=== PATIENT | male | born 1980 | race Caucasian/White ===

== ENCOUNTER 2017-07-26 08:36 | Emergency (ER) | payer SELFPAY ==
[~2017-07-26] VITALS: Ht 175.2 cm; Wt 93.0 kg
[~2017-07-26 08:36] MED LIST: AMOXIL500 MG PO; ANAPROX DS550 MG PO; CIPRO500 MG PO; CIPROFLOXACIN500 MG PO; CYCLOBENZAPRINE10 MG PO; FLAGYL500 MG PO; FLEXERIL5 MG PO; LOMOTIL 0.025 M1 TAB PO; MEDROL DOSEPAK4 MG PO; MOTRIN800 MG PO; MULTIVITAMIN1 CTB PO; Motrin,Rufen800 MG PO; PHENERGAN W/DM120 ML PO; PREDNISONE10 MG PO; PROAIR HFA0.09 MG/AC INH; ROBITUSSIN AC 110 ML PO; ROBITUSSIN-DM 110 ML PO; VIBRAMYCIN100 MG PO; VITAMIN C W/ROSE HIP; VITAMIN C500 M4 PO; ZITHROMAX Z PA250 MG PO; ZITHROMAX250 MG PO; ZYRTEC10 MG PO
[2017-07-26] MEDS ORDERED: NAPROSYN500 MG PO (12:02)
[2017-07-26] MEDS ORDERED: CYCLOBENZAPRINE5 M3 PO (12:02)
== END 2017-07-26 12:10 | disposition home or self-care (01) ==
LOC: ED 08:36
DX: G89.29 Other chronic pain (principal); M54.5 Low back pain; F17.200 Nicotine dependence, unspecified, uncomplicated; Z79.899 Other long term (current) drug therapy

== ENCOUNTER 2020-09-17 20:04 | Emergency (ER) | payer SELFPAY ==
[~2020-09-17] VITALS: Ht 175.2 cm; Wt 102.1 kg
[~2020-09-17 20:04] MED LIST changes: +CLINDAMYCIN150 MG PO; +CYCLOBENZAPRINE5 M3 PO; +NAPROSYN500 MG PO
[2020-09-17] MEDS ORDERED: AMOXICILLIN500 M2 PO (20:31)
== END 2020-09-17 23:38 | disposition home or self-care (01) ==
LOC: ED 20:04
DX: K04.7 Periapical abscess without sinus (principal); K08.89 Other specified disorders of teeth and supporting structures; F32.9 Major depressive disorder, single episode, unspecified; Z20.822 Contact with and (suspected) exposure to COVID-19; Z79.899 Other long term (current) drug therapy

== ENCOUNTER 2024-03-08 11:37 | Inpatient (IN) | payer SELFPAY ==
[~2024-03-08] VITALS: Ht 175.2 cm; Wt 119.0 kg
[~2024-03-08 11:37] MED LIST changes: +AMOXICILLIN500 M2 PO
[2024-03-08 12:05] VITALS: BP 116/77
[2024-03-08 12:15] LABS: BASO % 0.7 % (0.0-1.0); EOS # 0.2 10*3/uL (0.0-0.4); EOS % 3.5 % (1.0-4.0); MEAN CELL VOLUME 90.9 fl (80.0-94.0); MEAN CORPUSCULAR HGB 32.3 pg (27.0-31.0); MEAN CORPUSCULAR HGB CONC 35.5 g/dl (33.0-37.0); MEAN PLATELET VOLUME 9.8 fl (9.6-12.3); MONO # 0.5 10*3/uL (0.1-1.0); NEUT # 2.8 10*3/uL (2.3-7.9); NEUT % 50.1 % (47.0-73.0); PLATELET COUNT AUTOMATED 213 10*3/uL (130-400); RED BLOOD COUNT 4.18 10*6/uL (4.50-5.90); RED CELL DISTRI WIDTH 12.1 % (0-14.5); WHITE BLOOD COUNT 5.6 10*3/uL (4.8-10.8)
[2024-03-08 12:40] LABS: ACT PARTIAL THROMBO TIME 23.3 SECONDS (20.0-32.1)
[2024-03-08 12:41] LABS: ALKALINE PHOSPHATASE 86 U/L (46-116); BUN 13 mg/dl (9-23); CHLORIDE 106 mmol/L (98-107); POTASSIUM 3.4 mmol/L (3.4-5.1); SGPT/ALT 36 U/L (5-49)
[2024-03-08] MEDS ORDERED: ASPIRIN, CHEWABLE 81 MG TAB PO ONE (14:05)
[2024-03-08] MEDS ORDERED: SODIUM CHLORIDE 0.9% 100 ML IV ONE (14:46)
[2024-03-08] MEDS ORDERED: IOHEXOL 350 MG/ML 100 ML VIAL IV ONE (14:46)
[2024-03-08 15:05] VITALS: BP 122/72
[2024-03-08] MEDS ORDERED: BISACODYL 5 MG TAB PO PRN (16:15)
[2024-03-08] MEDS ORDERED: Acetaminophen/Hydrocodone 5 MG/325 MG TABLET PO PRN (16:15)
[2024-03-08] MEDS ORDERED: ACETAMINOPHEN 325 MG TAB PO PRN (16:15)
[2024-03-08] MEDS ORDERED: BISACODYL 10 MG SUPP R PRN (16:15)
[2024-03-08] MEDS ORDERED: Magnesium Hydroxide 30 ML UDC PO PRN (16:15)
[2024-03-08] MEDS ORDERED: Ondansetron Hydrochloride 4 MG/2 ML VIAL IV PRN (16:15)
[2024-03-08] MEDS ORDERED: ACETAMINOPHEN 650 MG SUPP R PRN (16:15)
[2024-03-08] MEDS ORDERED: Clopidogrel Hydrogen Sulfate 75 MG TAB PO ONE (16:25)
[2024-03-08] MEDS ORDERED: SODIUM CHLORIDE 0.9% 1,000 ML IV SCH (16:30)
[2024-03-08 17:48] VITALS: BP 118/68
[2024-03-09 06:42] LABS: BASO # 0.1 10*3/uL (0.0-0.1); BASO % 0.9 % (0.0-1.0); EOS # 0.2 10*3/uL (0.0-0.4); EOS % 2.5 % (1.0-4.0); HEMATOCRIT 41.8 % (42.0-52.0); LYMPH # 2.7 10*3/uL (1.3-4.4); MEAN CORPUSCULAR HGB 31.7 pg (27.0-31.0); MEAN CORPUSCULAR HGB CONC 33.3 g/dl (33.0-37.0); MEAN PLATELET VOLUME 10.3 fl (9.6-12.3); MONO # 0.9 10*3/uL (0.1-1.0); MONO % 11.3 % (3.0-9.0); NEUT # 4.1 10*3/uL (2.3-7.9); NEUT % 50.8 % (47.0-73.0); PLATELET COUNT AUTOMATED 250 10*3/uL (130-400); RED BLOOD COUNT 4.38 10*6/uL (4.50-5.90); RED CELL DISTRI WIDTH 12.4 % (0-14.5)
[2024-03-09 06:59] LABS: MEAN CELL VOLUME 95.4 fl (80.0-94.0)
[2024-03-09 07:01] LABS: ACT PARTIAL THROMBO TIME 25.1 SECONDS (20.0-32.1)
[2024-03-09 07:31] LABS: ALKALINE PHOSPHATASE 92 U/L (46-116); BUN 12 mg/dl (9-23); CHLORIDE 106 mmol/L (98-107); CHOLESTEROL 208 mg/dL (<200); LDL CHOLESTEROL 136 mg/dL (9-159); POTASSIUM 3.8 mmol/L (3.4-5.1); SGPT/ALT 38 U/L (5-49); TOTAL PROTEIN 7.3 gm/dL (6.0-8.0); TRIGLYCERIDES 151 mg/dl (<150)
[2024-03-09] MEDS ORDERED: SODIUM CHLORIDE 0.9% 100 ML BAG IV ONE (09:10)
[2024-03-09] MEDS ORDERED: IOHEXOL 350 MG/ML 100 ML VIAL IV ONE (09:10)
[2024-03-09 09:27] LABS: VITAMIN D, 25-HYDROXY 31.7 ng/mL (30-100)
[2024-03-09] MEDS ORDERED: Enoxaparin Sodium 40 MG/0.4 ML SYR SC SCH (10:00)
[2024-03-09] MEDS ORDERED: ASPIRIN, CHEWABLE 81 MG TAB PO SCH (10:00)
[2024-03-09] MEDS ORDERED: ATORVASTATIN CALCIUM 80 MG TAB PO SCH (10:00)
[2024-03-09] MEDS ORDERED: Clopidogrel Hydrogen Sulfate 75 MG TAB PO SCH (10:00)
[2024-03-09 10:27] VITALS: BP 120/78
[2024-03-09 13:30] VITALS: BP 130/68
[2024-03-09] MEDS ORDERED: CLARITIN10 MG PO (13:30)
[2024-03-09] MEDS ORDERED: ATORVASTATIN CA40 M1 PO (15:31)
[2024-03-09] MEDS ORDERED: ASPIRIN CHILDRE81 MG PO (15:31)
[2024-03-09] MEDS ORDERED: PERFLUTREN PROTEIN-A MICROSPHR 3 ML VIAL IV ONE (15:51)
== END 2024-03-09 16:22 | disposition home or self-care (01) | DRG 313 ==
LOC: ED 11:37 → EDHOLD 16:12
PROVIDERS: Internal Medicine; Student in an Organized Health Care Education/Training Program; ADMIT Internal Medicine; ATTEND Internal Medicine
DX: R07.89 Other chest pain (principal); Z68.45 Body mass index [BMI] 70 or greater, adult; D64.9 Anemia, unspecified; G89.29 Other chronic pain; M54.9 Dorsalgia, unspecified; R73.9 Hyperglycemia, unspecified; E66.01 Morbid (severe) obesity due to excess calories; E78.2 Mixed hyperlipidemia; Z79.899 Other long term (current) drug therapy; Z79.01 Long term (current) use of anticoagulants; Z82.49 Family history of ischemic heart disease and other diseases of the circulatory system; Z83.3 Family history of diabetes mellitus; Z79.2 Long term (current) use of antibiotics; Z86.16 Personal history of COVID-19

== ENCOUNTER 2024-03-14 14:34 | Emergency (ER) | payer SELFPAY ==
[~2024-03-14] VITALS: Ht 177.8 cm; Wt 118.8 kg
[~2024-03-14 14:34] MED LIST changes: +ASPIRIN CHILDRE81 MG PO; +ATORVASTATIN CA40 M1 PO; +CLARITIN10 MG PO
[2024-03-14] MEDS ORDERED: LORazepam 1 MG TAB PO ONE (14:50)
[2024-03-14 15:13] LABS: BASO % 0.4 % (0.0-1.0); EOS # 0.1 10*3/uL (0.0-0.4); EOS % 1.8 % (1.0-4.0); HEMATOCRIT 37.9 % (42.0-52.0); LYMPH # 1.8 10*3/uL (1.3-4.4); LYMPH % 24.6 % (27.0-41.0); MEAN CELL VOLUME 93.3 fl (80.0-94.0); MEAN CORPUSCULAR HGB 31.5 pg (27.0-31.0); MEAN CORPUSCULAR HGB CONC 33.8 g/dl (33.0-37.0); MONO # 0.8 10*3/uL (0.1-1.0); MONO % 11.1 % (3.0-9.0); NEUT # 4.6 10*3/uL (2.3-7.9); NEUT % 61.6 % (47.0-73.0); PLATELET COUNT AUTOMATED 242 10*3/uL (130-400); RED BLOOD COUNT 4.06 10*6/uL (4.50-5.90); RED CELL DISTRI WIDTH 11.9 % (0-14.5); WHITE BLOOD COUNT 7.4 10*3/uL (4.8-10.8)
[2024-03-14 15:31] LABS: BUN 17 mg/dl (9-23); CHLORIDE 104 mmol/L (98-107); POTASSIUM 3.9 mmol/L (3.4-5.1)
== END 2024-03-14 16:15 | disposition home or self-care (01) ==
LOC: ED 14:34
PROVIDERS: Nurse Practitioner Family
DX: R51.9 Headache, unspecified (principal); F41.9 Anxiety disorder, unspecified; Z79.82 Long term (current) use of aspirin; Z79.899 Other long term (current) drug therapy; Z87.891 Personal history of nicotine dependence

== ENCOUNTER 2024-09-22 20:10 | Emergency (ER) | payer BC ==
[~2024-09-22] VITALS: Ht 172.7 cm; Wt 111.1 kg
[2024-09-22 20:36] LABS: BASO # 0.1 10*3/uL (0.0-0.1); BASO % 0.7 % (0.0-1.0); EOS # 0.4 10*3/uL (0.0-0.4); EOS % 4.8 % (1.0-4.0); HEMATOCRIT 39.5 % (42.0-52.0); MEAN CELL VOLUME 94.3 fl (80.0-94.0); MEAN CORPUSCULAR HGB 31.7 pg (27.0-31.0); MEAN CORPUSCULAR HGB CONC 33.7 g/dl (33.0-37.0); MEAN PLATELET VOLUME 9.9 fl (9.6-12.3); MONO % 12.8 % (3.0-9.0); NEUT % 39.6 % (47.0-73.0); PLATELET COUNT AUTOMATED 224 10*3/uL (130-400); RED BLOOD COUNT 4.19 10*6/uL (4.50-5.90); RED CELL DISTRI WIDTH 12.3 % (0-14.5); WHITE BLOOD COUNT 7.5 10*3/uL (4.8-10.8)
[2024-09-22 21:01] LABS: ALKALINE PHOSPHATASE 109 U/L (46-116); BUN 13 mg/dl (9-23); CHLORIDE 105 mmol/L (98-107); POTASSIUM 3.4 mmol/L (3.4-5.1); SGPT/ALT 25 U/L (5-49); TOTAL PROTEIN 7.4 gm/dL (6.0-8.0)
[2024-09-22] MEDS ORDERED: LORazepam 1 MG TAB PO ONE (21:45)
== END 2024-09-22 23:26 | disposition home or self-care (01) ==
LOC: ED 20:10
PROVIDERS: Internal Medicine
DX: R07.89 Other chest pain (principal); D53.9 Nutritional anemia, unspecified; F32.A Depression, unspecified; F17.200 Nicotine dependence, unspecified, uncomplicated; Z79.899 Other long term (current) drug therapy

== ENCOUNTER 2025-01-19 20:04 | Observation (INO) | payer BC ==
[~2025-01-19] VITALS: Ht 172.7 cm; Wt 99.8 kg
[2025-01-19 20:30] LABS: BASO # 0.0 10*3/uL (0.0-0.1); BASO % 0.4 % (0.0-1.0); EOS # 0.3 10*3/uL (0.0-0.4); EOS % 2.6 % (1.0-4.0); MEAN CELL VOLUME 92.6 fl (80.0-94.0); MEAN CORPUSCULAR HGB 31.3 pg (27.0-31.0); MEAN PLATELET VOLUME 9.6 fl (9.6-12.3); MONO # 0.9 10*3/uL (0.1-1.0); MONO % 9.3 % (3.0-9.0); NEUT # 5.0 10*3/uL (2.3-7.9); NEUT % 53.1 % (47.0-73.0); NUCLEATED RED BLOOD CELL 0.0 % (0.0-0.0); NUCLEATED RED BLOOD CELL 0.0 10*3/uL (0.0-0.0); PLATELET COUNT AUTOMATED 243 10*3/uL (130-400); RED CELL DISTRI WIDTH 12.1 % (0-14.5)
[2025-01-19 20:38] VITALS: BP 123/76
[2025-01-19 20:44] LABS: ACT PARTIAL THROMBO TIME 24.0 SECONDS (20.0-32.1)
[2025-01-19 20:53] LABS: BUN 14 mg/dl (9-23); SGPT/ALT 33 U/L (5-49)
[2025-01-19] MEDS ORDERED: LISINOPRIL5 MG PO (23:32)
[2025-01-19] MEDS ORDERED: POTASSIUM CHLORIDE 20 MEQ TAB PO ONE (23:40)
[2025-01-19] MEDS ORDERED: ASPIRIN, CHEWABLE 81 MG TAB PO ONE (23:40)
[2025-01-20 00:07] VITALS: BP 111/65
[2025-01-20] MEDS ORDERED: ACETAMINOPHEN 650 MG SUPP R PRN (00:50)
[2025-01-20] MEDS ORDERED: BISACODYL 10 MG SUPP R PRN (00:50)
[2025-01-20] MEDS ORDERED: ACETAMINOPHEN 325 MG TAB PO PRN (00:50)
[2025-01-20] MEDS ORDERED: Acetaminophen/Hydrocodone 5 MG/325 MG TABLET PO PRN (00:50)
[2025-01-20] MEDS ORDERED: BISACODYL 5 MG TAB PO PRN (00:50)
[2025-01-20] MEDS ORDERED: IOHEXOL 350 MG/ML 100 ML VIAL IV ONE (01:15)
[2025-01-20] MEDS ORDERED: SODIUM CHLORIDE 0.9% 100 ML BAG IV ONE (01:15)
[2025-01-20 03:25] VITALS: BP 110/65
[2025-01-20 06:15] VITALS: BP 120/66
[2025-01-20 06:25] LABS: BUN 13 mg/dl (9-23); LDL CHOLESTEROL 76 mg/dL (9-159)
[2025-01-20] MEDS ORDERED: Regadenoson 0.4 MG/5 ML SYR IV ONE (06:26)
[2025-01-20 06:30] LABS: BASO # 0.1 10*3/uL (0.0-0.1); BASO % 0.5 % (0.0-1.0); EOS # 0.2 10*3/uL (0.0-0.4); EOS % 2.3 % (1.0-4.0); MEAN CELL VOLUME 94.0 fl (80.0-94.0); MEAN CORPUSCULAR HGB 31.6 pg (27.0-31.0); MEAN PLATELET VOLUME 10.5 fl (9.6-12.3); MONO # 1.1 10*3/uL (0.1-1.0); MONO % 10.7 % (3.0-9.0); NEUT # 5.0 10*3/uL (2.3-7.9); NEUT % 48.7 % (47.0-73.0); NUCLEATED RED BLOOD CELL 0.0 % (0.0-0.0); NUCLEATED RED BLOOD CELL 0.0 10*3/uL (0.0-0.0); PLATELET COUNT AUTOMATED 266 10*3/uL (130-400); RED CELL DISTRI WIDTH 12.4 % (0-14.5)
[2025-01-20] MEDS ORDERED: Technetium Tc 99M Tetrofosmi 0.23 MG KIT IJ SCH (07:10)
[2025-01-20 07:41] VITALS: BP 115/77
[2025-01-20 08:11] LABS: VITAMIN D, 25-HYDROXY 35.2 ng/mL (30-100)
[2025-01-20] MEDS ORDERED: LISINOPRIL 5 MG TAB PO SCH (10:00)
[2025-01-20] MEDS ORDERED: ASPIRIN, CHEWABLE 81 MG TAB PO SCH (10:00)
[2025-01-20] MEDS ORDERED: ATORVASTATIN CALCIUM 40 MG TABLET PO SCH (10:00)
[2025-01-20 12:04] VITALS: BP 115/64
== END 2025-01-20 18:43 | disposition home or self-care (01) ==
LOC: ED 20:04 → EDHOLD 23:38
PROVIDERS: Emergency Medicine; Student in an Organized Health Care Education/Training Program; ADMIT Student in an Organized Health Care Education/Training Program; ATTEND Student in an Organized Health Care Education/Training Program
DX: R07.9 Chest pain, unspecified (principal); I71.00 Dissection of unspecified site of aorta; E87.6 Hypokalemia; D64.9 Anemia, unspecified; R73.9 Hyperglycemia, unspecified; F17.290 Nicotine dependence, other tobacco product, uncomplicated; I10 Essential (primary) hypertension; E78.2 Mixed hyperlipidemia; J92.9 Pleural plaque without asbestos; Z68.33 Body mass index [BMI] 33.0-33.9, adult; Z79.899 Other long term (current) drug therapy

== ENCOUNTER 2025-02-07 10:56 | Emergency (ER) | payer BC ==
[~2025-02-07] VITALS: Ht 172.7 cm; Wt 113.4 kg
[~2025-02-07 10:56] MED LIST changes: +LISINOPRIL5 MG PO
[2025-02-07 11:29] LABS: BASO # 0.1 10*3/uL (0.0-0.1); BASO % 0.6 % (0.0-1.0); EOS # 0.1 10*3/uL (0.0-0.4); EOS % 1.5 % (1.0-4.0); MEAN CELL VOLUME 94.9 fl (80.0-94.0); MEAN CORPUSCULAR HGB 31.7 pg (27.0-31.0); MEAN PLATELET VOLUME 9.8 fl (9.6-12.3); MONO # 0.9 10*3/uL (0.1-1.0); MONO % 9.6 % (3.0-9.0); NEUT # 4.2 10*3/uL (2.3-7.9); NEUT % 44.8 % (47.0-73.0); NUCLEATED RED BLOOD CELL 0.0 % (0.0-0.0); NUCLEATED RED BLOOD CELL 0.0 10*3/uL (0.0-0.0); PLATELET COUNT AUTOMATED 249 10*3/uL (130-400); RED CELL DISTRI WIDTH 12.6 % (0-14.5)
[2025-02-07] MEDS ORDERED: METHOCARBAMOL750 M1 PO (11:33)
[2025-02-07 11:35] LABS: BILIRUBIN Negative (Negative); BLOOD Negative (Negative); CLARITY Clear (Clear); COLOR Yellow (Yellow); KETONE Trace (Negative); LEUKO ESTERASE Negative (Negative); NITRITE Negative (Negative); PH 6.0 (4.5-8.0); SPECIFIC GRAVITY 1.025 (1.001-1.030); UROBILINOGEN 1.0 E.U./dl (0.0-1.0)
[2025-02-07 11:39] LABS: ACT PARTIAL THROMBO TIME 22.8 SECONDS (20.0-32.1)
[2025-02-07 11:42] LABS: BACTERIA TRACE; EPITHELIAL CELLS 0-2; MUCOUS TRACE; WBC 0-2 wbc/hpf (0-5)
[2025-02-07 11:48] LABS: BUN 16 mg/dl (9-23)
[2025-02-07] MEDS ORDERED: ACETAMINOPHEN 325 MG TAB PO ONE (12:30)
== END 2025-02-07 12:39 | disposition home or self-care (01) ==
LOC: ED 10:56
DX: R07.89 Other chest pain (principal); M54.2 Cervicalgia; R05.9 Cough, unspecified; R20.2 Paresthesia of skin; M54.9 Dorsalgia, unspecified; R00.0 Tachycardia, unspecified; I10 Essential (primary) hypertension; E78.2 Mixed hyperlipidemia; F41.9 Anxiety disorder, unspecified; F17.290 Nicotine dependence, other tobacco product, uncomplicated; Z79.82 Long term (current) use of aspirin; Z79.899 Other long term (current) drug therapy

== ENCOUNTER 2025-03-16 19:48 | Emergency (ER) | payer BC ==
[~2025-03-16] VITALS: Ht 172.7 cm; Wt 113.4 kg
[~2025-03-16 19:48] MED LIST changes: +METHOCARBAMOL750 M1 PO
[2025-03-16 20:21] LABS: BASO # 0.0 10*3/uL (0.0-0.1); BASO % 0.5 % (0.0-1.0); EOS # 0.2 10*3/uL (0.0-0.4); EOS % 1.9 % (1.0-4.0); MEAN CELL VOLUME 92.8 fl (80.0-94.0); MEAN CORPUSCULAR HGB 30.9 pg (27.0-31.0); MEAN PLATELET VOLUME 10.0 fl (9.6-12.3); MONO # 0.6 10*3/uL (0.1-1.0); MONO % 7.5 % (3.0-9.0); NEUT # 4.6 10*3/uL (2.3-7.9); NEUT % 53.4 % (47.0-73.0); NUCLEATED RED BLOOD CELL 0.0 % (0.0-0.0); NUCLEATED RED BLOOD CELL 0.0 10*3/uL (0.0-0.0); PLATELET COUNT AUTOMATED 246 10*3/uL (130-400); RED CELL DISTRI WIDTH 12.3 % (0-14.5)
[2025-03-16 20:42] LABS: BUN 15 mg/dl (9-23)
[2025-03-16] MEDS ORDERED: POTASSIUM CHLORIDE 20 MEQ TAB PO ONE (21:05)
== END 2025-03-16 22:49 | disposition home or self-care (01) ==
LOC: ED 19:48
PROVIDERS: Internal Medicine
DX: R07.89 Other chest pain (principal); E87.6 Hypokalemia; F32.A Depression, unspecified